=== PATIENT | female | born 1965 | race Caucasian/White ===

== ENCOUNTER 2016-10-11 14:50 | Emergency (ER) | payer MEDICAID, OTHER ==
[~2016-10-11] VITALS: Ht 162.6 cm; Wt 75.0 kg
[2016-10-11 14:56] VITALS: BP 128/91; PULSE 96; RESP 16; O2SAT 99
--- NOTE | 2016-10-11 15:05 | ED.REPORT ---
HPI-General Illness Date of Service Oct 11, 2016 ED Provider: Kwadwo Fernandez DO Pt is a 51 year old female with a history of DVTs who presents to the ED complaining of increasing pain in her right knee for the past 4 days. She c/o associated swelling and erythema on her right knee with similar symptoms on the back of her calf. Pt was sent here from Urgent Care because she had a history of DVTs in her right leg. She was on a Warfarin therapy for 6 months in 2012, and they believed that the control that she was taking was causing the blood clots. Pt denies taking the control since then. Nursing Notes Stated Complaint: POSSIBLE BLOOD CLOT Chief Complaint: General Complaint Nursing Notes Reviewed: Yes Allergies: Coded Allergies: No Known Allergies (Verified Allergy, Severe, 01/16/04) Uncoded Allergies: No Known Allergies (Allergy, Severe, 01/16/04) General Time Seen by MD: 15:04 Chief Complaint Other (Right leg pain) Hx Obtained From: Patient Arrived By: Walk-in Onset Occurred: 4 days ago Symptom Duration: Since onset Location: : Knee right: Leg right Severity: Current: Moderate Severity: Maximum: Moderate Recent Healthcare: No recent doctor visit, No recent hospitalization Similar Sx Previous: Yes Past Medical History Past Medical History DVTs Past Surgical History Denies Smoking History Unknown if Ever Smoker Social History Denies Ambulatory Status Independent Review of Systems + Right knee and leg erythema Full Review of Systems Respiratory: Denies: Non-productive cough, Shortness of breath Musculoskeletal: Reports: Extremity pain, Extremity swelling, Joint pain, Joint swelling Complete sys rev & neg: except as marked. Physical Exam Vital Signs Vital Signs Date Time Temp Pulse Resp B/P Pulse Ox O2 Delivery O2 Flow Rate FiO2 10/11/16 16:40 82 16 116/63 10/11/16 14:56 37.2 96 16 128/91 99 Room Air Initial VS: Reviewed ENT: Mucous membranes moist, Conjunctiva normal, No scleral icterus Neck: Supple, Full range of motion Respiratory: Breath sounds normal, Clear to auscultation, No respiratory distress Cardiovascular: Regular rate & rhythm, Heart sounds normal, Intact distal pulses Abdomen / GI: Soft, Non-tender Skin: Warm, Dry, No cyanosis Neurologic: Alert, Oriented, Nonfocal Psychiatric: Mood/affect normal, Behavior normal General/Constitutional: Awake, Alert, Cooperative Upper Extremities Upper Extremity / MS: Neurologic intact, Vascular intact Lower Extremity / Pelvis / MS: Neurologic intact, Vascular intact Area of about 4cm over her right medial calf that is erythematous, warm, and tender. No generalized leg swelling. Varicosity of lower extremities. Interpretation & Diagnostics US VEINOUS LEG DUPLEX UNILATERAL, RIGHT - IMPRESSION: No evidence for deep venous thrombosis is found in the right lower extremity with this duplex venous Doppler study. However in varicose veins in the proximal calf at the site of pain there 2 areas of thrombus. Dictated by: Andrew Ovalles M.D. on 10/11/2016 at 16:28 Lab Results Interpretation Result Diagram: 10/11/16 1530 10/11/16 1530 Test 10/11/16 15:30 10/11/16 18:00 White Blood Count 8.1th/mm3 (3.8-10.1) Red Blood Count 4.69mil/mm3 (3.90-5.20) Hemoglobin 14.3g/dL (12.0-15.6) Hematocrit 41.1% (35.0-46.0) Mean Corpuscular Volume 87.6fL (81-100) Mean Corpuscular Hemoglobin 30.5pg (27.0-35.0) Mean Corpuscular Hemoglobin Concent 34.8% (32.0-37.0) Red Cell Distribution Width 12.3% (12.3-15.4) Platelet Count 225bil/L (150-400) Neutrophils (%) (Auto) 58.4% (40-74) Lymphocytes (%) (Auto) 34.1% (14-46) Monocytes (%) (Auto) 6.6% (4-12) Eosinophils (%) (Auto) 0.5% (0-5) Basophils (%) (Auto) 0.2% (0-3) Prothrombin Time 11.0sec (8.1-12.5) Prothromb Time International Ratio 1.03ratio Sodium Level 138mEq/L (134-144) Potassium Level 4.0mEq/L (3.5-5.2) Chloride Level 100mEq/L (97-108) Carbon Dioxide Level 21mmol/L (18-29) Blood Urea Nitrogen 19mg/dL (6-24) Creatinine 0.81mg/dL (0.57-1.00) Estimat Glomerular Filtration Rate 107mL/min (>59) Glucose Level 81mg/dL (60-99) Calcium Level 10.1mg/dL (8.5-10.1) Total Bilirubin 0.7mg/dL (0.0-1.2) Aspartate Amino Transf (AST/SGOT) 26U/L (0-50) Alanine Aminotransferase (ALT/SGPT) 20U/L (0-32) Alkaline Phosphatase 44U/L (25-150) Total Protein 7.5g/dL (6.4-8.4) Albumin 4.6g/dL (3.4-5.0) Hold Urine Received (Received) Re-Eval/Medical Decision Med Decision/Clinical Course 51-year-old female with a history of extensive DVT 4 years ago who was on 6 months of anticoagulation with warfarin presents with superficial thrombophlebitis that does not extend the veins. I have advised her that symptomatic treatment should be pursued and a follow-up needs to be arranged, although she states she does not have insurance or a current primary care provider. She has seen Betsy Pa in the past and would be comfortable seeing her again. Per up-to-date she should have a reevaluation in 6 weeks. I also advised that she begin aspirin. Source of Hx: Old records Time of Eval: 16:00 Re-Evaluation/Progress Note: Pt rechecked. Informed pt of results. All questions were answered. Time of Eval: 16:19 Re-Evaluation/Progress Note: Pt rechecked. Informed pt of plan for discharge. Pt understands and agrees with plan for discharge. F/U instructions and RTER warnings given. All questions addressed. Counseled Regarding: Diagnosis, Lab results, Need for follow-up, When/why to return to ED Discharge & Departure Primary Impression: Superficial thrombosis of leg Laterality: right Qualified Code: I82.811 - Embolism and thrombosis of superficial veins of right lower extremities Disposition: Home Discharge Condition All VS Reviewed: Yes Condition: Stable Patient Instructions: Superficial Thrombophlebitis (ED) Additional Instructions: You have superficial thrombosis. Elevate your legs above your heart when you can. Apply heat, ice, and compression. Take Aspirin 81 mg daily to help prevent clots. Limit the amount of time that you are stationary when travelling by getting up to walk around every hour. Follow up with your primary care provider and consider a consult with a vein specialist as this has been a recurrent issue. Follow up for an ultrasound with your primary care provider in 6 weeks. Return to the Emergency department if you experience new or worsening symptoms. Referrals: Betsy Pa MD (PCP) Sylvester Attestation Portions of this note were transcribed by Kaitlynn Trimble. I, Dr. Fernandez personally performed the history, physical exam and medical decision-making; I reviewed and confirmed the accuracy of the information in the transcribed note. Signed by: Sylvester Stallings, 10/11/16 and 16:40. copies to: Betsy Pa MD, Gary R DO Oct 11, 2016 15:05 Kaitlynn Kumar Oct 11, 2016 15:10
[2016-10-11 15:44] LABS: BASOPHILS % (AUTO) 0.2 % (0-3); EOSINOPHILS % (AUTO) 0.5 % (0-5); MONOCYTES % (AUTO) 6.6 % (4-12); Mean Corpuscular Hemoglobin 30.5 pg (27.0-35.0); Mean Corpuscular Volume 87.6 fL (81-100); NEUTROPHILS % (AUTO) 58.4 % (40-74); Platelet Count 225 bil/L (150-400)
[2016-10-11 15:57] LABS: INR 1.03 ratio
--- NOTE | 2016-10-11 16:30 | DRSVH ---
PROCEDURE: US VEINOUS LEG DUPLEX UNILATERAL, RIGHT INDICATIONS: RLE swelling, h/o DVT x3, no anticoag TECHNIQUE: Real-time imaging, as well as color and pulse Doppler interrogation, were performed of the lower extr emity deep veins from the inguinal ligament to the popliteal fossa. COMPARISON: None. FINDINGS: The deep veins are normally compressible, and free of intraluminal thrombus. Color and pu lse Doppler demonstrate normal phasic intraluminal flow. There is normal augmentation response to di stal compression maneuver. IMPRESSION: No evidence for deep venous thrombosis is found in the right lower extremity with this du plex venous Doppler study. However in varicose veins in the proximal calf at the site of pain there 2 areas of thrombus. Dictated by: Andrew Ovalles M.D. on 10/11/2016 at 16:28 Approved by: Andrew Ovalles M.D. on 10/11/2016 at 16:29
[2016-10-11 16:40] VITALS: BP 116/63; PULSE 82; RESP 16
== END 2016-10-11 16:50 | disposition home or self-care (01) ==
LOC: SED 14:50
DX: I82.811 Embolism and thrombosis of superficial veins of right lower extremity (principal)